=== PATIENT | male | born 1965 | race Caucasian/White ===

== ENCOUNTER 2018-04-16 18:31 | Emergency (ER) | payer OTHER ==
[2018-04-16 18:40] VITALS: O2SAT 99
[2018-04-16] MEDS ORDERED: Simethicone 80 mg Chewtab PO STA (19:17)
[2018-04-16] MEDS ORDERED: Alum-Mag Hydrox-Simethicone Susp (30 mL) PO STA (19:17)
[2018-04-16] MEDS ORDERED: Sodium Chloride 0.9% 1,000 ML IV STA (19:17)
--- NOTE | 2018-04-16 19:19 | C.PDOC ---
History Of Present Illness 52 y/o M c PMHx HTN, formerly on HD p/w abdominal pain x 3 days. Pain is described as indigestion in epigastric area, worse after eating, nonradiating. Denies fever, chills, chest pain, dyspnea, nausea, vomiting, diarrhea, dysuria. Time Seen by Provider: 04/16/18 18:51 Chief Complaint (Nursing): Abdominal Pain Past Medical History Vital Signs: Last Vital Signs Temp 98.5 F 04/16/18 18:37 Pulse 65 04/16/18 18:37 Resp 20 04/16/18 18:37 BP 149/90 04/16/18 18:37 Pulse Ox 99 04/16/18 19:23 - Medical History PMH: HTN, Pneumonia Family History: States: Unknown Family Hx - Social History Hx Alcohol Use: No Hx Substance Use: No - Immunization History Hx Tetanus Toxoid Vaccination: No Hx Influenza Vaccination: No Hx Pneumococcal Vaccination: No Review Of Systems Except As Marked, All Systems Reviewed And Found Negative. Constitutional: Negative for: Fever Cardiovascular: Negative for: Chest Pain Physical Exam - Physical Exam Additional Physical Exam Comments: Constitutional: No acute distress. Head: Normocephalic. Atraumatic. Eyes: PERRL. ENT: Moist mucous membranes. Neck: Supple. Cardiovascular: Regular rate. Radial pulse 2+ bilaterally. Chest: No tenderness. Respiratory: Clear to auscultation bilaterally. GI: Soft. Nontender. Nondistended. Back: No CVA tenderness. Musculoskeletal: No tenderness or swelling of extremities. Skin: No rash. Neurologic: Alert, no focal deficit. ED Course And Treatment - Laboratory Results Result Diagrams: 04/16/18 19:27 04/16/18 19:27 O2 Sat by Pulse Oximetry: 99 Medical Decision Making Medical Decision Making: Patient states he feels better. Creatinine baseline. Will discharge, f/u PMD, return to ED for any worsening pain, fever, vomiting, or any other problem. Disposition - Disposition Disposition: HOME/ ROUTINE Disposition Time: 20:43 Condition: STABLE Additional Instructions: FINDINGS: Artifacts: Motion artifact does moderately limit the sensitivity of this examination. Lung bases: Unremarkable. No mass. No consolidation. Heart: The cardiac chambers are moderately enlarged without the presence of pericardial thickening or effusion. ABDOMEN: Liver: There is very small finely nodular contour to the liver which could be associated with early cirrhosis. Recannulization of the periumbilical vein. Gallbladder and bile ducts: Unremarkable. No calcified stones. No ductal dilation. No significant wall thickening. Pancreas: Unremarkable. No ductal dilation. Spleen: Unremarkable. No splenomegaly. Adrenals: Unremarkable. No mass. Kidneys and ureters: No obstructing renal stones or hydronephrosis. No solid mass. Normal appearance of both ureters, and renal pelvises. A simple cyst is present within the right kidney. Stomach and bowel: Bowel loops appear within normal limits, no signs of wall thickening, mucosal edema, or bowel distention. PELVIS: Appendix: A normal appendix seen in the right lower quadrant. Bladder: Unremarkable. No stones. Reproductive: Unremarkable as visualized. ABDOMEN and PELVIS: Intraperitoneal space: Unremarkable. No free air. No significant fluid collection. Bones/joints: No acute fracture. No dislocation. Soft tissues: Unremarkable. Vasculature: There is a spontaneous splenorenal shunt. The aorta demonstrates mild atherosclerotic calcification. No abdominal aortic aneurysm. Lymph nodes: Unremarkable. No enlarged lymph nodes. IMPRESSION: No acute findings or significant abnormalities are noted within the abdomen and pelvis. Incidental and other non-acute findings are described above. Prescriptions: Famotidine/Ca Carb/Mag Hydrox [Pepcid Complete Tablet Chew] 1 each PO BID #[id number] tab.chew Instructions: Acute Abdomen (Belly Pain) Forms: [employer] ([facility]) - Clinical Impression Clinical Impression: Abdominal pain - Scribe Statement The provider has reviewed the documentation as recorded by the [facility]if[facility] [place] Do Provider Attestation: All medical record entries made by the Scribe were at my direction and personally dictated by me. I have reviewed the chart and agree that the record accurately reflects my personal performance of the history, physical exam, medical decision making, and the department course for this patient. I have also personally directed, reviewed, and agree with the discharge instructions and disposition.
[2018-04-16] MEDS ORDERED: Sodium Chloride 0.9% 1,000 ML ONE (19:26)
[2018-04-16] MEDS ORDERED: Alum-Mag Hydrox-Simethicone Susp (30 mL) ONE (19:27)
[2018-04-16 19:30] LABS: BASO % 0.7 % (0.0-2.0); EOS # 0.1 K/uL (0.0-0.7); EOS % 1.3 % (0.0-4.0); HEMOGLOBIN 17.9 g/dL (12.0-18.0); LYMPH # 1.5 K/uL (1.0-4.3); LYMPH % 22.6 % (20.0-40.0); MEAN CORPUSCULAR HEMOGLOBIN 30.3 pg (27.0-31.0); MEAN PLATELET VOLUME 9.8 fL (7.2-11.7); MONO % 14.2 % (0.0-10.0); NEUT # 4.2 K/uL (1.8-7.0); NEUT % 61.2 % (50.0-75.0); NRBC % 0.1 % (0.0-2.0); RBC 5.91 Mil/uL (4.40-5.90); RED CELL DISTRIBUTION WIDTH 13.4 % (11.5-14.5); WHITE BLOOD COUNT 6.8 K/uL (4.8-10.8)
[2018-04-16 19:31] LABS: MEAN CELL VOLUME 89.1 fL (80.0-94.0)
[2018-04-16 19:35] LABS: URINE BACTERIA RARE (<OCC); URINE BILIRUBIN NEGATIVE (NEGATIVE); URINE BLOOD NEGATIVE (NEGATIVE); URINE CLARITY Clear (Clear); URINE COLOR Yellow (YELLOW); URINE GLUCOSE (UA) NORMAL (Normal); URINE LEUKOCYTE ESTERASE NEG Leu/uL (Negative); URINE PROTEIN NEGATIVE (NEGATIVE); URINE UROBILINOGEN NORMAL mg/dL (0.2-1.0)
[2018-04-16 19:44] LABS: ALB/GLOB RATIO 1.3 (1.0-2.1); ALBUMIN 4.6 g/dL (3.5-5.0); CALCIUM 9.6 mg/dl (8.6-10.4)
[2018-04-16 20:59] VITALS: BP 142/89; PULSE 67; RESP 17; TEMP 98.7
--- NOTE | 2018-04-17 15:41 | CT ---
Date of service: 04/16/2018 PROCEDURE: CT abdomen and pelvis. HISTORY: Abdominal pain COMPARISON: No prior TECHNIQUE: Contiguous axial images of the abdomen and pelvis performed without oral or intravenous contrast material. Additional 2D sagittal and coronal reformats generated. This CT exam was performed using one or more of the following dose reduction techniques: Automated exposure control, adjustment of the mA and/or kV according to patient size, and/or use of iterative reconstruction technique. . Radiation dose: Total exam DLP = 769.9 mGy-cm. FINDINGS: LOWER THORAX: Heart is mildly enlarged. No significant pericardial effusion. There is a small hiatal hernia. Lung bases are clear. No infiltrate effusion or basilar pneumothorax. LIVER: Liver exhibits normal size measuring approximately 16 cm. Small elliptical shaped calcification at inferior tip of the right lobe liver possibly related to prior exposure to granulomatous disease process. No obvious hepatic mass or collection seen on this noncontrast study. GALLBLADDER AND BILE DUCTS: Gallbladder is incompletely distended presumably due to nonfasting state. . No obvious intraluminal gallbladder calculi PANCREAS: Unremarkable. No mass. No ductal dilatation. SPLEEN: Spleen exhibits normal size and attenuation pattern ADRENALS: Slightly nodular appearing left adrenal gland. KIDNEYS AND URETERS: There is an approximately 2.2 cm cyst upper pole right kidney. . Apparent spontaneous splenorenal shunt BLADDER: Urinary bladder is physiologically distended. No evidence of intraluminal gallbladder calculi REPRODUCTIVE: The prostate is enlarged and encroaches into the floor of the urinary bladder. . APPENDIX: Normal appendix best seen on axial 108- 126. BOWEL: Evaluation of the bowel is limited due to the lack of oral contrast material. The stomach is partially distended with food debris and air. Visualized loops of small bowel exhibit normal contour and caliber. No evidence of acute mechanical small bowel obstruction. There appears to be a few scattered colonic diverticula along the descending and sigmoid colon. No radiographic evidence of acute diverticulitis. . PERITONEUM: Unremarkable. No fluid collection. No free air. Tiny fat containing umbilical hernia. LYMPH NODES: Unremarkable. No enlarged lymph nodes. VASCULATURE: No evidence of abdominal aortic or iliac artery aneurysm. Minor partially calcified atherosclerotic plaque changes seen along the abdominal aorta and iliac arteries. . There there is dilatation of the left renal artery with what appears to represent a cluster of serpiginous vessels in the left renal hilum and outside adjacent to the hilar region of the left kidney. These findings are of uncertain etiology though could represent a giant AV fistula . Follow-up CTA of the abdomen recommended for further evaluation to confirm and exclude other underlying vascular abnormalities. BONES: Minor multilevel degenerative spondylosis of the lower thoracic and lumbar spine. OTHER FINDINGS: None. IMPRESSION: There is dilatation of the left renal artery with what appears represent a cluster of enlarged serpiginous vessels in the left renal hilum and immediately adjacent to the hilar region. These findings are of uncertain etiology though may represent shine AV fistula. Follow-up CTA of the abdomen recommended for further evaluation to confirm and exclude other underlying vascular abnormalities. Cardiomegaly. Note this report was placed in PA review folder for followup. Note the interpretation is discordant with overnight radiology service of preliminary interpretation report.
== END 2018-04-16 20:59 | disposition home or self-care (01) ==
LOC: C.ER 18:31
DX: R10.9 Unspecified abdominal pain (principal)
CPT/HCPCS: 74176; 80053; 81001; 83690; 85025; 87086; 96361; 96374; 99284; J7030